=== PATIENT | male | born 1975 | race African-American/Black ===

== ENCOUNTER 2016-07-10 11:30 | Emergency (ER) | payer OTHER ==
[~2016-07-10] VITALS: Ht 177.8 cm; Wt 104.3 kg
[2016-07-10 11:35] VITALS: BP 149/94
[2016-07-10] MEDS ORDERED: DIPHTH,PERTUSS(ACELL),TET TOX 0.5 ML DISP.SYRIN. VAX IM ONE (13:00)
[2016-07-10] MEDS ORDERED: MUPI15CR TP (13:03)
[2016-07-10] MEDS ORDERED: CLIN-44 PO (13:03)
--- NOTE | 2016-07-10 13:03 | PHYS DOC ---
Past Medical History Past Medical History: Hypertension Past Surgical History: No Surgical History Alcohol Use: Rarely Drug Use: None Adult General Chief Complaint Chief Complaint: INSECT BITE HPI HPI Patient is a 40 year old male who presents with an abscess of the left lower extremity and a skin infection in between his right index finger and middle finger that began 9 days ago. Patient states he was seen at a different provider and was given a prescription for doxycycline which she is still taking. He states he followed up with his own PCP a couple days ago and was given a injection of antibiotics. He states he is very concerned the infection is not improving. He states he has been looking on the Internet and he has seen the multiple people talking about the legs being amputated from brown recluse spider bites. Patient states he believes he has a brown recluse spider bite. Patient denies any fever. Review of Systems Review of Systems Constitutional: Denies fever or chills [] Eyes: Denies change in visual acuity, redness, or eye pain [] Musculoskeletal: Denies back pain or joint pain [] Integument: abscess of the left lower extremity and a skin infection in between his right index finger and middle finger Neurologic: Denies headache, focal weakness or sensory changes [] Endocrine: Denies polyuria or polydipsia [] Current Medications Current Medications Current Medications Medications (Trade) Dose Ordered Sig/Isaias Start Time Stop Time Status Last Admin Dose Admin Diphtheria/ Tetanus/Acell Pertussis (Boostrix) 0.5 ml ONCE ONCE 07/10/16 13:00 07/10/16 13:01 DC Allergies Allergies Allergies Coded Allergies Type Severity Reaction Last Updated Verified No Known Drug Allergies 07/10/16 No Physical Exam Physical Exam Constitutional: Well developed, well nourished, no acute distress, non-toxic appearance. [] Skin: Left ventricle eye with a closed scabbed area, the area has a 2 cm surrounding cellulitis. The area is warm and very firm and tender to touch. There is no fluctuance to the area. Webspace between the right index finger and middle finger has a blister that opened up. The area is nonerythematous. There is no drainage from the area. Open wound is approximately 2 x 0.5 cm. Neurological function is intact to the right hand as well as the left lower extremity. Back: No tenderness, no CVA tenderness. [] Extremities: No tenderness, no cyanosis, no clubbing, ROM intact, no edema. [] Neurologic: Alert and oriented X 3, normal motor function, normal sensory function, no focal deficits noted. [] Psychologic: Affect normal, judgement normal, mood normal. [] Current Patient Data Vital Signs Vital Signs Date Time Temp Pulse Resp B/P Pulse Ox O2 Delivery O2 Flow Rate FiO2 07/10/16 11:35 98.5 87 20 97 Room Air 98.5 EKG EKG [] Radiology/Procedures Radiology/Procedures [] Course & Med Decision Making Course & Med Decision Making Pertinent Labs and Imaging studies reviewed. (See chart for details) Patient is in the ED with abscess of the left lower extremity and a skin infection in between his right index finger and middle finger. He is currently on doxycycline and has also received an injection of antibiotics through the PCP. Patient states the infection is not improving. On physical exam the area does not appear as infected as he is trying to state. There is no drainage from the area. There is no fluctuance to both infections sites. He was given tetanus vaccine in the ED. He was discharged with clindamycin and Bactroban. Instructed to keep the areas clean and dry. Follow-up with primary care doctor in 1-2 weeks. Dragon Disclaimer Dragon Disclaimer This electronic medical record was generated, in whole or in part, using a voice recognition dictation system. Departure Departure Impression: Primary Impression: Abscess of lower leg Additional Impression: Blisters of multiple sites, infected Disposition: HOME, SELF-CARE Condition: STABLE Referrals: NATALIIA [facility]JICA [facility] (PCP) Follow-up with your own doctor in the next 7-10 days Patient Instructions: Abscess Additional Instructions: You were seen for an abscess of the lower extremity. Please keep the area clean and dry. You can stop your current antibiotics and switch to the new antibiotics prescribed you. You can wash the affected areas with regular soap and water, keep them covered if draining otherwise live them open. Scripts Mupirocin Calcium (Bactroban Cream)15 Gm Cream..g.1 Doug TP TID #30 GM Prov:YEISON AUGUSTIN APRN 07/10/16 Clindamycin Hcl 150 Mg Capsule3 Cap PO TID #90 CAP Prov:YEISON AUGUSTIN APRN 07/10/16 Problem Qualifiers YEISON AUGUSTIN APRN Jul 10, 2016 13:03
== END 2016-07-10 13:20 | disposition home or self-care (01) ==
LOC: ER 11:30
DX: L02.416 Cutaneous abscess of left lower limb (principal); R23.8 Other skin changes; I10 Essential (primary) hypertension
CPT/HCPCS: 90471; 90715; 96372; 99283-25